=== PATIENT | male | born 1955 | race Caucasian/White ===

== ENCOUNTER 2018-09-23 14:06 | Outpatient (CLI) | payer OTHER ==
[2018-09-23] MEDS ORDERED: GADOBUTROL 10 MMOL/10 ML VIAL ONE (14:57)
== END 2018-09-23 23:59 | disposition home or self-care (01) ==
LOC: CFH 14:06 → EDSTATUS 14:15 → CFH 23:59
PROVIDERS: ATTEND Family Medicine
DX: S06.0X1A Concussion with loss of consciousness of 30 minutes or less, initial encounter (principal); H70.893 Other mastoiditis and related conditions, bilateral; G31.9 Degenerative disease of nervous system, unspecified; R90.82 White matter disease, unspecified; X58.XXXA Exposure to other specified factors, initial encounter; Y93.9 Activity, unspecified; Y92.89 Other specified places as the place of occurrence of the external cause; Y99.8 Other external cause status
CPT/HCPCS: 70553; 93880; A9585

== ENCOUNTER 2018-10-12 07:09 | Outpatient (CLI) | payer OTHER | END 2018-10-12 23:59 | disposition home or self-care (01) | LOC: CVU 07:09 | PROVIDERS: ATTEND Family Medicine | DX: I08.1 Rheumatic disorders of both mitral and tricuspid valves (principal); G45.9 Transient cerebral ischemic attack, unspecified | CPT/HCPCS: 93017; 93306 ==